=== PATIENT | male | born 1985 | race Caucasian/White ===

== ENCOUNTER 2017-05-15 21:34 | Emergency (ER) | payer OTHER ==
[~2017-05-15] VITALS: Ht 180.3 cm; Wt 104.3 kg
--- NOTE | 2017-05-15 22:23 | NUR ---
DR. HUGHES AT BEDSIDE.
[2017-05-15] MEDS: TDAP DIPH,PERTUSS,TET VAC/PF 0.5 ML DISP.SYRIN IM ONE (22:35)
[2017-05-15] MEDS: HYDROCODONE/APAP 5-325MG TABLET PO ONE (22:35)
[2017-05-15] MEDS: LET TOPICAL SOLUTION 8 ML UDC TP ONE (22:35)
[2017-05-15] MEDS ORDERED: TDAP DIPH,PERTUSS,TET VAC/PF 0.5 ML DISP.SYRIN IM ONE (22:40)
[2017-05-15] MEDS ORDERED: LET TOPICAL SOLUTION 8 ML UDC ONE (22:40)
[2017-05-15] MEDS ORDERED: HYDROCODONE/APAP 5-325MG TABLET ONE (22:40)
--- NOTE | 2017-05-15 23:28 | NUR ---
Patient discharged to home in stable conditon. Written and verbal after care instructions given. Patient verbalizes understanding of instructions. PATIENT LEFT WITH STABLE GAIT.
[2017-05-15 23:31] VITALS: BP 137/89
== END 2017-05-15 23:32 | disposition home or self-care (01) ==
LOC: ER 21:35
DX: S61.213A Laceration without foreign body of left middle finger without damage to nail, initial encounter (principal); I10 Essential (primary) hypertension; F12.10 Cannabis abuse, uncomplicated; W27.8XXA Contact with other nonpowered hand tool, initial encounter; Y93.89 Activity, other specified; Y92.89 Other specified places as the place of occurrence of the external cause; Y99.8 Other external cause status
CPT/HCPCS: 90715; A4663